=== PATIENT | male | born 1990 ===

== ENCOUNTER 2017-11-30 11:27 | Emergency (ER) | payer SELFPAY ==
[2017-11-30 11:42] VITALS: BP 123/74; PULSE 83; RESP 18; TEMP 37.3; O2SAT 100
--- NOTE | 2017-11-30 13:28 | ED_ITS ---
HPI - Skin/Abscess/Foreign Bdy <DALLAS Patel - Last Filed: 11/30/17 20:56> General Chief complaint: Skin/Abscess/Foreign Body Stated complaint: CUT LT ARM Time Seen by Provider: 11/30/17 12:51 Source: patient Mode of arrival: ambulatory Limitations: no limitations History of Present Illness HPI narrative: 27-year-old healthy male here for complaint of laceration to his left forearm area. He states that he was at work today when he was using a knife to cut a cardboard when it slipped causing a laceration to the medial aspect of the midforearm. He denies any other injuries or concerns. He denies any loss of sensation or motor function. He reports his last tetanus was in August. MD complaint: laceration Review of Systems <DALLAS Patel - Last Filed: 11/30/17 20:56> Eyes Denies change in vision, Denies eye discharge, Denies irritation and Denies loss of vision ENT Ears, Nose, Mouth, and Throat: Denies change in voice, Denies neck pain and Denies sore throat Cardiovascular Denies chest pain, Denies irregular heart rhythm, Denies lightheadedness, Denies palpitations, Denies dyspnea, Denies dyspnea on exertion and Denies orthopnea Respiratory Denies cough, Denies dyspnea, Denies dyspnea on exertion and Denies wheezing Gastrointestinal Gastrointestinal: Denies abdominal pain, Denies change in bowel habits, Denies diarrhea, Denies nausea and Denies vomiting Genitourinary Denies hematuria, Denies flank pain, Denies urinary incontinence and Denies urinary urgency Musculoskeletal Denies neck pain Comments: Laceration of left forearm Integumentary/Breasts Denies pruritus, Denies erythema, Denies rash and Denies wounds Neurologic Denies confusion and Denies loss of vision Psychiatric Denies anxiety, Denies confusion, Denies depression, Denies homicidal ideation and Denies suicidal ideation Endocrine Denies palpitations Hematologic/Lymphatic Denies easy bruising Allergic/Immunologic Denies wheezing Exam <DALLAS Patel - Last Filed: 11/30/17 20:56> Initial Vital Signs Initial Vital Signs: Vital Signs Temperature 99.2 F 11/30/17 11:42 Pulse Rate 83 11/30/17 11:42 Respiratory Rate 18 11/30/17 11:42 Blood Pressure 123/74 H 11/30/17 11:42 Pulse Oximetry 100 11/30/17 11:42 Const General: cooperative and well developed Nutritional Appearance: well nourished Orientation: alert, awake, oriented x3 and not confused [facility] Mouth: oral mucosae normal and moist mucous membranes Eyes Conjunctivae: conjunctivae normal Sclera: sclerae normal Pupils: PERRL EOM: EOM intact bilaterally Resp Effort & Inspection: normal respiratory effort, able to speak in complete sentences, no respiratory distress and no use of accessory muscles Auscultation: clear to auscultation bilaterally, no rales, no rhonchi and no wheezes Cardio Rate: regular rate Rhythm: regular rhythm Heart Sounds: no click, no gallops, no murmurs and no rubs Pulses: normal peripheral pulses Skin General: no rashes or lesions noted, No jaundice and No petechiae Neuro General: alert, oriented x3, gait normal and no focal motor deficits Speech: speech normal Extrem Other: 2 cm laceration to left forearm laceration is to the mid forearm to the ulnar palmar aspect distal sensation is intact. Distal pulses are intact. Full range of motion. <DO Jose Casillas Last Filed: 12/01/17 19:29> Initial Vital Signs Initial Vital Signs: Vital Signs Temperature 99.2 F 11/30/17 11:42 Pulse Rate 83 11/30/17 11:42 Respiratory Rate 18 11/30/17 11:42 Blood Pressure 123/74 H 11/30/17 11:42 Pulse Oximetry 100 11/30/17 11:42 Procedures <DALLAS Patel - Last Filed: 11/30/17 20:56> Laceration Repair Laceration 1: Site: upper extremity Side (If applicable): left Size (cm): 2 Description: linear Depth: simple, single layer Local Anesthetic: lidocaine 1% Amount of anesthesia used (mL): 3 Pre-repair: wound explored, irrigated extensively and deep structures intact Skin layer closed with: nylon Size (cm): 5-0 Number of sutures: 5 Technique: simple, interrupted Course <DALLAS Patel - Last Filed: 11/30/17 20:56> Vital Signs - 8 hr 11/30/17 13:34 Pulse Rate 75 Respiratory Rate 17 Blood Pressure [Left Arm] 139/74 H Pulse Oximetry 100 <DO Jose Casillas Filed: 12/01/17 19:29> Vital Signs - 8 hr 11/30/17 13:34 Pulse Rate 75 Respiratory Rate 17 Blood Pressure [Left Arm] 139/74 H Pulse Oximetry 100 MDM - Skin/Abscess/Foreign Bdy <DALLAS Patel - Last Filed: 11/30/17 20:56> [facility] Narrative Medical decision making narrative: Laceration left forearm was cleansed with 500 mL of normal saline. Wound closed with 5 5-0 nylon sutures. Wound dressed with bacitracin and a dressing. Tetanus is reported as being up-to-date. Sutures to be removed in 7-10 days. Tylenol Motrin as needed for any discomfort. Keep wound area clean and dry for 24 hr. After 24 hr may shower briefly after shower dry wound redressed with bacitracin dressing. Dress wound daily with bacitracin dressing. No immersion of the wound until completely healed. For any worsening symptoms return emergency room. Discharge Plan Departure Patient Disposition: Home, Self-Care Clinical Impression: Laceration of forearm, left Discharge Date/Time: 11/30/17 13:52 Interventions: ED Discharge Assessment Last Done: 11/30/17 13:50 Instructions: DI for Laceration Repair Activity Restrictions/Additional Instructions: Laceration to left forearm was closed with 5 sutures. Sutures to be removed in 7-10 days. Tylenol Motrin as needed for any discomfort. Keep wound area clean and dry for 24 hr. After 24 hr may shower briefly after shower dry wound redressed with bacitracin dressing. Dress wound daily with bacitracin dressing. No immersion of the wound until completely healed. [id number] Tylenol or Motrin as needed for any discomfort. For any worsening symptoms return emergency room. Referrals: [facility] [Provider Group] <Tom Alanis DO - Last Filed: 12/01/17 19:29> Cosign ED Attending Rosie Attestation: I was available for consultation during this patient's emergency department encounter
[2017-11-30 13:34] VITALS: BP 139/74; PULSE 75; RESP 17; O2SAT 100
== END 2017-11-30 13:52 | disposition home or self-care (01) ==
PROVIDERS: Emergency Provider Nurse Practitioner Family
DX: S51.812A Laceration without foreign body of left forearm, initial encounter (principal); W26.0XXA Contact with knife, initial encounter
CPT/HCPCS: 12002; 99282; 99283